=== PATIENT | male | born 1950 ===

== ENCOUNTER 2017-07-05 09:15 | Inpatient (IN) | payer OTHER ==
[~2017-07-05] VITALS: Ht 175.3 cm; Wt 89.8 kg
[2017-07-05] MEDS ORDERED: METFORMIN HCL500 MG PO (12:22)
[2017-07-05] MEDS ORDERED: LOSARTAN-HCTZ1 EACH PO (12:23)
[2017-07-05] MEDS ORDERED: PERCOCET 10-321 EACH PO (12:23)
[2017-07-05] MEDS ORDERED: SIMVASTATIN20 MG PO (12:23)
[2017-07-05] MEDS ORDERED: FEROSUL325 MG PO (12:24)
== END 2017-07-30 15:06 | disposition home health service (06) | DRG 329 ==
LOC: SURH 07-07 06:37 → SURG 07-07 06:37 → O/R 07-07 06:37 → SURH 07-07 19:02 → O/R 07-07 19:03 → SURG 07-08 12:54 → SURH 07-11 08:23
PROVIDERS: Colon & Rectal Surgery
PROC: 0DQE0ZZ Repair Large Intestine, Open Approach (ICD-10-PCS; 2017-07-07)
PROC: 07TC0ZZ Resection of Pelvis Lymphatic, Open Approach (ICD-10-PCS; 2017-07-07)
PROC: 0D1B0Z4 Bypass Ileum to Cutaneous, Open Approach (ICD-10-PCS; 2017-07-07)
PROC: 0DJD8ZZ Inspection of Lower Intestinal Tract, Via Natural or Artificial Opening Endoscopic (ICD-10-PCS; 2017-07-07)
PROC: 0DTP0ZZ Resection of Rectum, Open Approach (ICD-10-PCS; principal; 2017-07-07 15:00)
PROC: 3E0336Z Introduction of Nutritional Substance into Peripheral Vein, Percutaneous Approach (ICD-10-PCS; 2017-07-10)
PROC: BW21Y0Z Computerized Tomography (CT Scan) of Abdomen and Pelvis using Other Contrast, Unenhanced and Enhanced (ICD-10-PCS; 2017-07-13)
PROC: 0W9G30Z Drainage of Peritoneal Cavity with Drainage Device, Percutaneous Approach (ICD-10-PCS; 2017-07-15)
PROC: 8E0ZXY6 Isolation (ICD-10-PCS; 2017-07-18)
PROC: 30233N1 Transfusion of Nonautologous Red Blood Cells into Peripheral Vein, Percutaneous Approach (ICD-10-PCS; 2017-07-19)
PROC: BW21Y0Z Computerized Tomography (CT Scan) of Abdomen and Pelvis using Other Contrast, Unenhanced and Enhanced (ICD-10-PCS; 2017-07-22)
DX: C19 Malignant neoplasm of rectosigmoid junction (principal); K65.1 Peritoneal abscess; C77.2 Secondary and unspecified malignant neoplasm of intra-abdominal lymph nodes; K56.0 Paralytic ileus; K91.89 Other postprocedural complications and disorders of digestive system; T81.4XXA Infection following a procedure, initial encounter; E87.3 Alkalosis; I10 Essential (primary) hypertension; E11.9 Type 2 diabetes mellitus without complications; E78.00 Pure hypercholesterolemia, unspecified; Z88.0 Allergy status to penicillin; B96.20 Unspecified Escherichia coli [E. coli] as the cause of diseases classified elsewhere; B95.2 Enterococcus as the cause of diseases classified elsewhere; Z16.12 Extended spectrum beta lactamase (ESBL) resistance; D64.89 Other specified anemias; B96.6 Bacteroides fragilis [B. fragilis] as the cause of diseases classified elsewhere

== ENCOUNTER 2017-12-02 15:57 | Inpatient (IN) | payer OTHER ==
[~2017-12-02] VITALS: Ht 175.3 cm; Wt 87.5 kg
[~2017-12-02 15:57] MED LIST: FEROSUL325 MG PO; LOSARTAN-HCTZ1 EACH PO; METFORMIN HCL500 MG PO; PERCOCET 10-321 EACH PO; SIMVASTATIN20 MG PO
[2017-12-22] MEDS ORDERED: ZOCOR20 MG PO (12:11)
== END 2017-12-31 16:12 | disposition home or self-care (01) | DRG 331 ==
LOC: SURG 12-29 07:00 → O/R 12-29 09:52 → SURG 12-29 19:19
PROVIDERS: Colon & Rectal Surgery
PROC: 0DQB4ZZ Repair Ileum, Percutaneous Endoscopic Approach (ICD-10-PCS; principal; 2017-12-29 07:00)
DX: Z43.2 Encounter for attention to ileostomy (principal); I10 Essential (primary) hypertension; E11.9 Type 2 diabetes mellitus without complications; E78.00 Pure hypercholesterolemia, unspecified; Z88.0 Allergy status to penicillin; Z08 Encounter for follow-up examination after completed treatment for malignant neoplasm; Z85.048 Personal history of other malignant neoplasm of rectum, rectosigmoid junction, and anus

== ENCOUNTER 2017-12-22 07:30 | Outpatient (CLI) | payer OTHER ==
[2017-12-22] MEDS ORDERED: ZOCOR20 MG PO (12:11)
== END 2017-12-22 17:00 | disposition home or self-care (01) ==
LOC: RAD 07:30
DX: C20 Malignant neoplasm of rectum (principal)

== ENCOUNTER 2018-07-22 12:58 | Day surgery (SDC) | payer OTHER ==
[~2018-07-22 12:58] MED LIST changes: +ZOCOR20 MG PO
== END 2018-07-22 17:45 | disposition home or self-care (01) ==
LOC: AMB-ENDOS 12:58
DX: K57.30 Diverticulosis of large intestine without perforation or abscess without bleeding (principal)

== ENCOUNTER 2019-05-02 01:12 | Inpatient (IN) | payer OTHER ==
[~2019-05-02] VITALS: Ht 182.9 cm; Wt 93.4 kg
[2019-05-04] MEDS ORDERED: METFORMIN HCL500 M4 PO (08:12)
== END 2019-06-11 13:07 | disposition expired | DRG 329 ==
LOC: ICU 01:12 → SURH 01:12 → O/R 05-08 10:17 → ICU 05-08 22:51
PROVIDERS: ADMIT Colon & Rectal Surgery
PROC: 02HV33Z Insertion of Infusion Device into Superior Vena Cava, Percutaneous Approach (ICD-10-PCS; 2019-05-02)
PROC: 3E0436Z Introduction of Nutritional Substance into Central Vein, Percutaneous Approach (ICD-10-PCS; 2019-05-02)
PROC: 0DH67UZ Insertion of Feeding Device into Stomach, Via Natural or Artificial Opening (ICD-10-PCS; 2019-05-03)
PROC: 3E0G76Z Introduction of Nutritional Substance into Upper GI, Via Natural or Artificial Opening (ICD-10-PCS; 2019-05-03)
PROC: 0DNB0ZZ Release Ileum, Open Approach (ICD-10-PCS; 2019-05-08)
PROC: 4A033R1 Measurement of Arterial Saturation, Peripheral, Percutaneous Approach (ICD-10-PCS; 2019-05-08)
PROC: 0D1B0Z4 Bypass Ileum to Cutaneous, Open Approach (ICD-10-PCS; principal; 2019-05-08 07:15)
PROC: 0BH17EZ Insertion of Endotracheal Airway into Trachea, Via Natural or Artificial Opening (ICD-10-PCS; 2019-05-09)
PROC: 4A12X4Z Monitoring of Cardiac Electrical Activity, External Approach (ICD-10-PCS; 2019-05-09)
PROC: 5A1945Z Respiratory Ventilation, 24-96 Consecutive Hours (ICD-10-PCS; 2019-05-09)
PROC: 30233N1 Transfusion of Nonautologous Red Blood Cells into Peripheral Vein, Percutaneous Approach (ICD-10-PCS; 2019-05-13)
PROC: BW21ZZZ Computerized Tomography (CT Scan) of Abdomen and Pelvis (ICD-10-PCS; 2019-05-18)
PROC: BW40ZZZ Ultrasonography of Abdomen (ICD-10-PCS; 2019-05-19)
PROC: B246ZZZ Ultrasonography of Right and Left Heart (ICD-10-PCS; 2019-05-20)
PROC: 0W9F30Z Drainage of Abdominal Wall with Drainage Device, Percutaneous Approach (ICD-10-PCS; 2019-05-21)
PROC: BW21Y0Z Computerized Tomography (CT Scan) of Abdomen and Pelvis using Other Contrast, Unenhanced and Enhanced (ICD-10-PCS; 2019-05-26)
PROC: BB24Y0Z Computerized Tomography (CT Scan) of Bilateral Lungs using Other Contrast, Unenhanced and Enhanced (ICD-10-PCS; 2019-05-26)
PROC: 0W9B30Z Drainage of Left Pleural Cavity with Drainage Device, Percutaneous Approach (ICD-10-PCS; 2019-05-29)
PROC: 0W9G30Z Drainage of Peritoneal Cavity with Drainage Device, Percutaneous Approach (ICD-10-PCS; 2019-06-04)
DX: K91.31 Postprocedural partial intestinal obstruction (principal); I50.31 Acute diastolic (congestive) heart failure; K57.01 Diverticulitis of small intestine with perforation and abscess with bleeding; J95.822 Acute and chronic postprocedural respiratory failure; T81.12XA Postprocedural septic shock, initial encounter; B37.1 Pulmonary candidiasis; C20 Malignant neoplasm of rectum; E87.3 Alkalosis; E44.0 Moderate protein-calorie malnutrition; N32.1 Vesicointestinal fistula; K63.2 Fistula of intestine; D62 Acute posthemorrhagic anemia; J90 Pleural effusion, not elsewhere classified; I31.3 Pericardial effusion (noninflammatory); B37.41 Candidal cystitis and urethritis; E87.4 Mixed disorder of acid-base balance; N17.8 Other acute kidney failure; T81.44XA Sepsis following a procedure, initial encounter; J98.11 Atelectasis; I11.0 Hypertensive heart disease with heart failure; I08.0 Rheumatic disorders of both mitral and aortic valves; E87.6 Hypokalemia; R31.0 Gross hematuria; E11.65 Type 2 diabetes mellitus with hyperglycemia; Z79.4 Long term (current) use of insulin